=== PATIENT | male | born 1990 | race Caucasian/White ===

== ENCOUNTER 2016-08-28 17:39 | Emergency (ER) | payer OTHER ==
[2016-08-28 18:41] VITALS: BP 144/98
--- NOTE | 2016-08-28 18:50 | ED Physician Documentation ---
Upper Extremity Problem - HISTORIAN Historian: patient - HPI Stated Complaint: left wrist pain Chief Complaint: Upper Extremity Injury Location: L wrist Onset: hours (1) Timing: still present Recent Injury: Yes Where: home Severity: moderate Further Comments: yes (26 yo male presents with left wrist injury. pt "tripped over my own feet" causing him to fall, landed on his outstretched left hand. Immediate pain at lateral wrist.) - ROS CONST: no problems - PAST HX Past History: none Allergies/Adverse Reactions: Allergies Allergy/AdvReac Type Severity Reaction Status Date / Time amoxicillin [Amoxicillin] Allergy Intermediate Vomiting Verified 07/13/15 21:05 - SOCIAL HX Smoking History: non-smoker - FAMILY HX Family History: none - VITAL SIGNS Vital Signs: Vital Signs Temp Pulse Resp BP Pulse Ox 97 H 16 144/98 97 08/28/16 18:35 08/28/16 18:35 08/28/16 18:35 08/28/16 18:35 - REVIEWED ASSESSMENTS Nursing Assessment Reviewed: Yes Vitals Reviewed: Yes ED Results Lab/Radiology - Radiology Radiology Impressions: Left wrist 3 views History: Pain after fall Findings: The left wrist is unremarkable without fracture, dislocation, arthropathy, or focal bone lesion. Electronically signed on Aug 28, 2016 7:04:02 PM MILLING MACHINE OPERATOR by: Bairon Rios - Orders Orders: ED Orders Category Date Time Status WRIST 3 VIEWS OR MORE [RAD] Stat Exams 08/28/16 Taken Upper Extremity Problem - EXAM General Appearance: no acute distress, alert Skin: warm/dry, normal color Shoulder Exam: normal inspection, non-tender, no evidence of injury, normal ROM Elbow/Forearm Exam: normal inspection, non-tender, no evidence of injury, normal ROM Wrist Exam: bone tenderness (left lateral wrist), limited ROM, pain, soft tissue tenderness Hand Exam: normal inspection, non-tender Neuro/Tendon: normal sensation EENT: eye inspection normal, ENT inspection normal, ANEL CVS: reg rate & rhythm Peripheral: sensation nml, motor nml Discharge Clincal Impression: Left wrist sprain Qualifiers: Encounter type: initial encounter Qualified Code(s): S63.502A - Unspecified sprain of left wrist, initial encounter Additional Instructions: Ice area of pain QAMAR wrap Tylenol as needed for pain Condition: Good Disposition: 01 HOME, SELF-CARE Decision to Admit: NO Decision Time: 19:08
--- NOTE | 2016-08-29 05:35 | Diagnostic Imaging Report ---
Report Submission Date: Aug 28, 2016 7:04:02 PM VEHICLE TRIMMER Patient ~ Study Name: MADAY CAZARES ~ Date: Aug 28, 2016 6:48:59 PM VEHICLE TRIMMER ~ Modality Type: CR Gender: M ~ Description: UPPER EXTREMITY : 89 ~ Institution: [facility] Physician: DANNY JOLLEY ~ ~ ~ ~ Left wrist 3 views History: Pain after fall Findings: The left wrist is unremarkable without fracture, dislocation, arthropathy, or focal bone lesion. ~ Electronically signed on Aug 28, 2016 7:04:02 PM VEHICLE TRIMMER by: Bairon PRASAD
== END 2016-08-28 19:30 | disposition home or self-care (01) ==
LOC: ED 17:39
DX: S63.502A Unspecified sprain of left wrist, initial encounter (principal); W19.XXXA Unspecified fall, initial encounter; Y93.9 Activity, unspecified; Y99.9 Unspecified external cause status
CPT/HCPCS: 73110; 99283

== ENCOUNTER 2016-12-17 10:04 | Emergency (ER) | payer OTHER ==
--- NOTE | 2016-12-17 10:43 | ED Physician Documentation ---
Lower Extremity Problem - HPI Stated Complaint: left foot pain Chief Complaint: Lower Extremity Problem Additional Information: left foot pain, whole foot, denies trauma. once before, took ibuprofen. got better. awoke sun with pain. Location of Injury: L foot Onset: days ago Timing: still present Duration: constant Recent Injury: No Severity: mild Quality: pain Exacerbated By: walking, movement Relieved By: nothing Associated Symptoms: denies: chest pain, shortness of breath Further Comments: no - ROS CONST: no problems MS/SKIN/LYMPH: none CVS/RESP: none GI/: none EYES/ENT: none NERUO/PSYCH: denies: headache - PAST HX Past History: none PE Risk Factors: none Other History: denies: gout, peripheral vasc. disease, diabetes Type 1 Surgeries/Procedures: none Allergies/Adverse Reactions: Allergies Allergy/AdvReac Type Severity Reaction Status Date / Time amoxicillin [Amoxicillin] Allergy Intermediate Vomiting Verified 07/13/15 21:05 - SOCIAL HX Smoking History: non-smoker Alcohol Use: none Drug Use: none - FAMILY HX Family History: none - VITAL SIGNS Vital Signs: Vital Signs Temp Pulse Resp BP Pulse Ox 144/98 08/28/16 19:50 - REVIEWED ASSESSMENTS Nursing Assessment Reviewed: Yes Vitals Reviewed: Yes ED Results Lab/Radiology - Radiology Radiology Impressions: foot xray NAD - Orders Orders: ED Orders Category Date Time Status FOOT COMPLETE [FOOT 3 VIEWS OR MORE] [RAD] Stat Exams 12/17/16 10:40 Completed Ketorolac Tromethamine [Toradol] Med 12/17/16 11:16 Once 60 mg IM NOW ONE methylPREDNISolone SOD SUCC [Solu-MEDROL] Med 12/17/16 11:16 Once 125 mg IM NOW ONE Lower Extremity Problem - EXAM General Appearance: no distress Hips: bilateral hip: non-tender, normal inspection Legs: bilateral: non-tender, normal inspection Knees: bilateral: non-tender, normal inspection Ankle: left: limited range of motion, pain Foot: left foot: limited range of motion, pain Neuro/Tendon: responds to pain, no evidence tendon injury EENT: ENT inspection normal RESPIRATORY: no resp distress JOINT: joints nml, unable to bear weight VASCULAR: no vascular compromise, pulses full/equal NEURO/PSYCH: oriented X3 SKIN: warm/dry, normal color BACK: normal inspection Discharge Clincal Impression: Foot sprain Qualifiers: Encounter type: initial encounter Laterality: left Qualified Code(s): S93.602A - Unspecified sprain of left foot, initial encounter Strain of foot, left Qualifiers: Encounter type: initial encounter Qualified Code(s): S96.912A - Strain of unspecified muscle and tendon at ankle and foot level, left foot, initial encounter Condition: Stable Disposition: 01 HOME, SELF-CARE Decision to Admit: NO Date of Decison to Admit: 12/17/16 Decision Time: 11:18
--- NOTE | 2016-12-17 11:05 | Diagnostic Imaging Report ---
[facility] [address] [facility].[address] [address] Report Submission Date: December 17, 2016 11:00:09 AM CDT Patient Study Name: MADAY CAZARES Date: December 17, 2016 10:45:26 AM CDT Modality Type: CR Gender: M Description: LOWER EXTREMITY : 89 Institution: [facility] Physician: ISABEL BANKS Left foot, 3 views History: Left foot pain no injury. Findings: The osseous structures are intact without acute fracture. The joint space and alignment are normal. There is no soft tissue swelling. Impression: 1. No acute osseous abnormality. Electronically signed on December 17, 2016 11:00:09 AM CDT by: Randy PRASAD
[2016-12-17] MEDS ORDERED: KETOROLAC TROMETHAMINE 60 MG/2 ML VIAL IM ONE (11:16)
[2016-12-17] MEDS ORDERED: methylPREDNISolone SOD SUCC 125 MG/2 ML VIAL IM ONE (11:16)
[2016-12-17 11:49] VITALS: BP 141/88
== END 2016-12-17 11:48 | disposition home or self-care (01) ==
LOC: ED 10:04
DX: S96.912A Strain of unspecified muscle and tendon at ankle and foot level, left foot, initial encounter (principal); X58.XXXA Exposure to other specified factors, initial encounter; Y93.9 Activity, unspecified; Y99.9 Unspecified external cause status
CPT/HCPCS: 73630; J1885; J2930; 96372; 99283